=== PATIENT | female | born 1975 ===

== ENCOUNTER 2025-01-22 09:23 | Day surgery (SDC) | payer OTHER ==
[2025-01-22] MEDS ORDERED: ONDANSETRON HCL 2 MG/ML VIAL IV ONE (11:45)
[2025-01-22] MEDS ORDERED: fentaNYL CITRATE 50 MCG/ML AMPUL IV PUSH ONE (11:45)
[2025-01-22] MEDS ORDERED: DIPHENHYDRAMINE HCL 50 MG/ML VIAL 1ML IV ONE (11:45)
[2025-01-22] MEDS ORDERED: MIDAZOLAM HCL 2 MG/2 ML VIAL IV ONE (11:45)
== END 2025-01-22 13:20 | disposition home or self-care (01) ==
LOC: CIR.AMB 09:23
PROVIDERS: ATTEND Colon & Rectal Surgery
DX: K57.30 Diverticulosis of large intestine without perforation or abscess without bleeding (principal)